=== PATIENT | male | born 1990 | race Caucasian/White ===

== ENCOUNTER 2020-09-14 11:59 | Emergency (ER) | payer OTHER ==
[~2020-09-14] VITALS: Ht 198.1 cm; Wt 136.1 kg
[2020-09-14] MEDS ORDERED: CHANTIX1 MG PO (12:09)
[2020-09-14] MEDS ORDERED: VITAMIN D250 MC1 PO (12:10)
[2020-09-14] MEDS ORDERED: ATOMOXETINE HCL25 MG PO (12:11)
[2020-09-14] MEDS ORDERED: LISINOPRIL10 MG PO (12:11)
[2020-09-14] MEDS ORDERED: PROMETHAZINE PO (12:11)
[2020-09-14] MEDS ORDERED: OMEPRAZOLE 20 M20 M1 PO (12:12)
[2020-09-14] MEDS ORDERED: SERTRALINE HCL100 MG PO (12:12)
[2020-09-14] MEDS ORDERED: LIPITOR40 MG PO (12:12)
[2020-09-14 12:42] LABS: ABSOLUTE EOSINOPHILS 0.1 thou/uL (0.0-0.7); ABSOLUTE LYMPHOCYTES 1.6 thou/uL (0.8-5.3); ABSOLUTE MONOCYTES 0.2 thou/uL (0.0-1.2); ABSOLUTE NEUTROPHILS 3.7 thou/uL (1.6-8.1); BASOPHILS 0.8 %; HEMATOCRIT 37.4 % (42.0-52.0); HEMOGLOBIN 13.2 gm/dL (14.0-18.0); MCH 30.6 pg (26.0-34.0); MCHC 35.4 g/dL (28.0-37.0); MCV 86.6 fL (80.0-100.0); MONOCYTES 3.6 %; MPV 6.8 fl. (7.2-11.1); NUCLEATED RBCS 0 /100WBC; PLATELET COUNT* 291 thou/uL (150-400); POLYS 65.6 %; RBC 4.32 mil/uL (4.50-6.00); RDW-CV 13.1 % (10.5-14.5); WBC 5.7 thou/uL (4.0-11.0)
[2020-09-14 13:01] LABS: CALCIUM 8.7 mg/dL (8.5-10.1); CREATININE 0.9 mg/dL (0.6-1.3); POTASSIUM 4.5 mmol/L (3.5-5.1)
[2020-09-14 13:12] LABS: ALBUMIN 3.7 g/dL (3.4-5.0); TOTAL BILIRUBIN 0.4 mg/dL (<0.1-1.0); TOTAL PROTEIN 8.3 g/dL (6.4-8.2)
[2020-09-14 14:37] LABS: URINE BILIRUBIN NEGATIVE (Negative); URINE BLOOD NEGATIVE (Negative); URINE CLARITY CLEAR; URINE COLOR YELLOW; URINE GLUCOSE-RANDOM NEGATIVE (Negative); URINE KETONES NEGATIVE (Negative); URINE LEUKOCYTES-REFLEX NEGATIVE (Negative); URINE NITRITE-REFLEX NEGATIVE (Negative); URINE PROTEIN NEGATIVE (Negative); URINE UROBILINOGEN 0.2 E.U./dl (0.2-1.0)
--- NOTE | 2020-09-14 14:39 | EKG ---
[place] [address] ELECTROCARDIOGRAM REPORT Name: PRIYANKA NATH Room: [facility]#: [id number] Admission: 09/14/20 Attend Phys: Discharge: Date of : 86 Date of Service: 09/14/20 1243 Report #: [id number] THIS REPORT FOR: //name// [facility] ED Test Date: 2020-09-14 Test Time: 12:43:22 Pat Name: PRIYANKA NATH Department: Room: Gender: Certified Drug Counselor: [facility] : 1990 Requested By: Theresa Dominguez Order Number: [id number] MD: Jarad Patterson Measurements Intervals [place] Rate: 69 P: 20 [place]: 158 QRS: 32 QRSD: 93 T: 48 QT: 388 QTc: 416 Interpretive Statements Sinus rhythm No previous ECG available for comparison Electronically Signed On 09-14-2020 14:39:06 CDT by Jarad Patterson [email or web address] <ELECTRONICALLY SIGNED> By: Jarad Patterson MD, [facility] 09/14/20 1439 1243 1243 Jarad Patterson MD, FACC /EPI
[2020-09-14] MEDS ORDERED: ZOFRAN ODT4 MG PO (14:42)
[2020-09-14 14:49] VITALS: BP 138/78
== END 2020-09-14 14:50 | disposition home or self-care (01) ==
LOC: M.ERS 11:59
PROVIDERS: Nurse Practitioner Family
DX: T67.5XXA Heat exhaustion, unspecified, initial encounter (principal); R11.2 Nausea with vomiting, unspecified; Z98.890 Other specified postprocedural states; Z79.899 Other long term (current) drug therapy; Z91.09 Other allergy status, other than to drugs and biological substances; X30.XXXA Exposure to excessive natural heat, initial encounter; Y93.89 Activity, other specified; Y92.89 Other specified places as the place of occurrence of the external cause; Y99.8 Other external cause status